=== PATIENT | male | born 1980 | race Caucasian/White ===

== ENCOUNTER 2024-02-10 16:07 | Emergency (ER) | payer OTHER, SELFPAY ==
[2024-02-10 16:10] VITALS: BP 138/82; PULSE 77; RESP 18; TEMP 36.6; O2SAT 97; BMI 29.4
--- NOTE | 2024-02-10 16:10 | HMH.EDGENADL ---
Discharge Plan Disposition Patient Disposition: Home, Self-Care Condition: Good Referrals Follow up/Referrals: Nathan Camacho MD [Staff Physician] - See instructions Provider,MD Marcos [Primary Care Provider] - See instructions Activity Restrictions/Add. Instructions Additional Instructions/Restrictions: Nothing to eat or drink after midnight. Please call Dr. Camacho's office when they open in the morning. Return to ER for any worsening signs or symptoms. Clinical Impressions Clinical Impression: Acute foreign body of right upper arm Qualifiers: Encounter type: initial encounter Qualified Code(s): S40.851A - Superficial foreign body of right upper arm, initial encounter Instructions Patient Instructions: DI for Skin Abscess Discharge ED Provider: Diego Maradiaga General Adult HPI <THERESA Macedo - Last Filed: 02/10/24 19:03> General Chief complaint: Skin/Abscess/Foreign Body Stated complaint: AO02/09@1400 Thorn in RT arm Time Seen by Provider: 02/10/24 16:10 History of Present Illness HPI narrative: Patient presents for evaluation of foreign body in his right upper extremity. Patient was unloading brush that contained trees with forms. He felt puncture in his triceps area of his right upper extremity. He did not actually see the foreign bodily initially however when he started to flex or extend his arm felt very painful. Patient happened to have some lidocaine at home and they attempted to locate remove the foreign body themselves however were unsuccessful. Hence he presented to the emergency department for evaluation. On arrival I feel a hard firm foreign body and can see the puncture wound. I feel the foreign body for porpoising up and down to flex and extends his arm. He is neurovascular intact distally. Related Data Allergies Allergy/AdvReac Type Severity Reaction Status Date / Time No Known Allergies Allergy Verified 02/10/24 16:47 PFSH <THERESA Macedo - Last Filed: 02/10/24 19:03> PFS Disclaimer: The information contained in this section may have been updated after the patient was seen, as this information can be updated by other users. Social History (Updated 02/10/24 @ 19:03 by THERESA Macedo) Smoking Status: Never smoker alcohol intake: never current occupational status: employed Travel in the last 8 weeks: None <THERESA Macedo - Last Filed: 02/10/24 19:03> ROS Obtained: Yes Systems reviewed as appropriate & no additional complaints except as documented Physical Exam <THERESA Macedo - Last Filed: 02/10/24 19:03> General General appearance: alert and in no apparent distress Respiratory Respiratory exam: Present normal lung sounds bilaterally and accessory muscle use Cardiovascular Cardiovascular exam: Present regular rate and normal rhythm Neurological Exam Neurological exam: Present alert and oriented X3 Other Other exam information: At the right upper extremity patient has a puncture wound at the junction of the middle and distal thirds posteriorly. I can feel the foreign body moving up and down as the patient flexes and extends and rotates his arm I can see a dark object moving away and close to the skin. Patient is neurovascular intact distally. Medical Decision Making <THERESA Macedo - Last Filed: 02/10/24 19:03> Nilesh Inquiry Pt receiving controlled substance: No Vital Signs: 02/10/24 16:10 02/10/24 16:17 Temperature 98 F Temperature Source Oral Pulse Rate 76 Pulse Rate [Right] 77 Respiratory Rate 18 18 Blood Pressure 138/82 Blood Pressure [Right Arm] 138/82 Blood Pressure Mean 85 Blood Pressure Mean [Right Arm] 100 02 Sat by Pulse Oximetry 97 97 Oxygen Delivery Method Room Air Orders (Tests/Meds): ED MEDICATIONS Discontinued Medications Generic Name Dose Route Start Last Admin Trade Name Freq PRN Reason Stop Dose Admin Amoxicillin/Clavulanate Potassium 1 each 02/10/24 18:19 02/10/24 18:41 Amoxicillin/Clavulanate Potassium 875/125mg Tablet PO 02/10/24 18:20 1 each ONCE ONE Administration Clindamycin Phosphate 900 mg in 50 mls @ 100 mls/hr 02/10/24 18:20 02/10/24 18:41 Clindamycin 900mg/50ml D5w Premix IV 02/10/24 18:49 100 mls/hr ONCE ONE Administration Iopamidol 75 ml 02/10/24 18:12 02/10/24 18:14 Iopamidol-370 (76%);100ml Bottle IV 02/10/24 18:13 75 ml ONCE ONE Administration Lidocaine HCl 5 ml 02/10/24 16:16 02/10/24 16:48 Lidocaine 1% 10ml Mdv SQ 02/10/24 16:17 5 ml ONCE ONE Administration Tetanus/Reduced Diphtheria/Acell Pertussis 0.5 ml 02/10/24 16:17 02/10/24 17:28 Tet/Diphth/Pert-Adult 0.5ml Syringe IM 02/10/24 16:18 0.5 ml .ONCE ONE Administration ORDERS Category Date Time Status CT humerus RT w con Stat Cat Scan 02/10/24 17:32 Completed Humerus XR right [XR humerus RT] Stat Exams 02/10/24 16:49 Completed Medical Decision Narrative: In summary patient is a 43-year-old male who presents to the emergency department for evaluation of right upper extremity foreign body. Patient is hemodynamically stable upon arrival, afebrile. Physical exam is remarkable for a firm foreign body felt in the posterior aspect of the right upper extremity around the triceps. Differential diagnosis includes foreign body versus fragments versus tendon injury versus muscle injury versus neurovascular injury etc. Initial intervention was for normal sterile prep and date and incision made over the palpable foreign body at the site of the puncture. Unfortunately I was unable to locate the foreign body after extensive searching. At that point we tried a [id number]-[id number] ultrasound to see if we can locate the foreign body and also were unsuccessful. At that point I had an interactive discussion with general surgery about patient management. Dr. Camacho recommended attempting CT scan and marking the point of entry. Unfortunately we were unable to locate the foreign body thus I had another conversation with Dr. Camacho who plans to take patient to the operating room for exploration tomorrow. Patient will be n.p.o. after midnight call Dr. Camacho office in the morning and they will schedule when for him to arrive. Patient was given Augmentin and clindamycin here prior to discharge. <Diego Maradiaga MD - Last Filed: 02/10/24 19:08> Vital Signs: 02/10/24 16:10 02/10/24 16:17 Temperature 98 F Temperature Source Oral Pulse Rate 76 Pulse Rate [Right] 77 Respiratory Rate 18 18 Blood Pressure 138/82 Blood Pressure [Right Arm] 138/82 Blood Pressure Mean 85 Blood Pressure Mean [Right Arm] 100 02 Sat by Pulse Oximetry 97 97 Oxygen Delivery Method Room Air Orders (Tests/Meds): ED MEDICATIONS Discontinued Medications Generic Name Dose Route Start Last Admin Trade Name Freq PRN Reason Stop Dose Admin Amoxicillin/Clavulanate Potassium 1 each 02/10/24 18:19 02/10/24 18:41 Amoxicillin/Clavulanate Potassium 875/125mg Tablet PO 02/10/24 18:20 1 each ONCE ONE Administration Clindamycin Phosphate 900 mg in 50 mls @ 100 mls/hr 02/10/24 18:20 02/10/24 18:41 Clindamycin 900mg/50ml D5w Premix IV 02/10/24 18:49 100 mls/hr ONCE ONE Administration Iopamidol 75 ml 02/10/24 18:12 02/10/24 18:14 Iopamidol-370 (76%);100ml Bottle IV 02/10/24 18:13 75 ml ONCE ONE Administration Lidocaine HCl 5 ml 02/10/24 16:16 02/10/24 16:48 Lidocaine 1% 10ml Mdv SQ 02/10/24 16:17 5 ml ONCE ONE Administration Tetanus/Reduced Diphtheria/Acell Pertussis 0.5 ml 02/10/24 16:17 02/10/24 17:28 Tet/Diphth/Pert-Adult 0.5ml Syringe IM 02/10/24 16:18 0.5 ml .ONCE ONE Administration ORDERS Category Date Time Status CT humerus RT w con Stat Cat Scan 02/10/24 17:32 Completed Humerus XR right [XR humerus RT] Stat Exams 02/10/24 16:49 Completed Medical Decision Narrative: In summary patient is a 43-year-old male who presents to the emergency department for evaluation of right upper extremity foreign body. Patient is hemodynamically stable upon arrival, afebrile. Physical exam is remarkable for a firm foreign body felt in the posterior aspect of the right upper extremity around the triceps. Differential diagnosis includes foreign body versus fragments versus tendon injury versus muscle injury versus neurovascular injury etc. Initial intervention was for normal sterile prep and date and incision made over the palpable foreign body at the site of the puncture. Unfortunately I was unable to locate the foreign body after extensive searching. At that point we tried a [id number]-qyav ultrasound to see if we can locate the foreign body and also were unsuccessful. At that point I had an interactive discussion with general surgery about patient management. Dr. Camacho recommended attempting CT scan and marking the point of entry. Unfortunately we were unable to locate the foreign body thus I had another conversation with Dr. Camacho who plans to take patient to the operating room for exploration tomorrow. Patient will be n.p.o. after midnight call Dr. Camacho office in the morning and they will schedule when for him to arrive. Patient was given Augmentin and clindamycin here prior to discharge. I was consulted by the RUTHIE, and we discussed the complexity of the problems being addressed. I approved the treatment and management plan for this patient?s care in the Emergency Department, thus performing a substantive portion of the medical decision making. Diego Maradiaga MD Procedures <Diego Maradiaga MD - Last Filed: 02/10/24 19:08> Limited Ultrasound Indication:: Limited soft tissue ultrasound Indication: Concern for foreign body in right posterior arm Identified structures: Location: Right tricep/posterior humerus Findings: Skin defect, no evidence of soft tissue foreign body Impression: -Normal limited soft tissue ultrasound Images were saved to permanent archive The study was technically adequate Soft Tissue CPT Codes: CPT Neck: 11094-72 CPT Upper extremity: 36563-72 CPT Axilla: 47924-19 CPT Chest wall: 24210-64 CPT Breast: 53475-87-DO/LT (complete), 66179-03-HI/LT (limited), CPT Upper Back: 76091-26 CPT Lower Back: 12726-56 CPT Abdominal Wall: 66092-55 CPT Pelvic Wall: 67673-54 CPT Lower Extremity: 62265-36 CPT Other Soft Tissue: 14053-00 This study was performed by me, and I personally interpreted all images/videos. Based on my clinical judgement, these images were adequate and did not necessitate further imaging. Critical Care <THERESA Macedo - Last Filed: 02/10/24 19:03> Critical Care Time Critical Care Time: No
[2024-02-10 16:17] VITALS: BP 138/82; PULSE 76; RESP 18; O2SAT 97
[2024-02-10] MEDS: LIDOCAINE 1% 10ML MDV 5 ML SQ (16:48)
--- NOTE | 2024-02-10 16:49 | XR_ITS ---
PROCEDURE INFORMATION: Exam: XR Right Humerus Exam date and time: 02/10/2024 4:56 PM Age: 43 years old Clinical indication: Other: R/O fb; Patient HX: PT had locust thorn penetrate posterior lateral humerus today; Additional info: Foreign body TECHNIQUE: Imaging protocol: Radiologic exam of the right humerus. Views: 2 or more views. COMPARISON: No relevant prior studies available. FINDINGS: Bones/joints: No acute osseous injury. Soft tissues: There is some soft tissue swelling. No radiopaque foreign body is seen. IMPRESSION: No radiopaque foreign body or acute osseous abnormality.
[2024-02-10] MEDS: TET/DIPHTH/PERT-ADULT 0.5ML SYRINGE 0.5 ML IM (17:28)
--- NOTE | 2024-02-10 17:32 | CT_ITS ---
PROCEDURE INFORMATION: Exam: CT Right Upper Extremity With Contrast, Upper Arm Exam date and time: 02/10/2024 6:12 PM Age: 43 years old Clinical indication: Other: Foreign body; Additional info: [place] foreign body posterior upper extremity TECHNIQUE: Imaging protocol: Computed tomography of the right upper extremity with contrast. Exam focused on the upper arm. Radiation optimization: All CT scans at this facility use at least one of these dose optimization techniques: automated exposure control; mA and/or kV adjustment per patient size (includes targeted exams where dose is matched to clinical indication); or iterative reconstruction. Contrast material: ISOVUE; Contrast volume: 75 ml; Contrast route: IV; COMPARISON: CR XR HUMERUS RT 02/10/2024 4:56 PM FINDINGS: Bones/joints: Normal. No acute fracture or dislocation. Soft tissues: There is subcutaneous gas within the tissues of the posterior aspect of the humerus. There is skin discontinuity underlying a radiopaque marker (image 109 series 4). A radiopaque foreign body is not seen. No evidence for vascular injury. No fluid collection. IMPRESSION: Subcutaneous gas and inflammatory change without a radiopaque foreign body identified.
[2024-02-10] MEDS: IOPAMIDOL-370 (76%);100ML BOTTLE 75 ML IV (18:14)
[2024-02-10] MEDS: AMOXICILLIN/CLAVULANATE POTASSIUM 875/125MG TABLET 1 EACH PO (18:41)
[2024-02-10] MEDS: CLINDAMYCIN PHOSPHATE/D5W 900 MG/50 ML PIGGYBACK 100 MG IV (18:41)
[2024-02-10 19:08] VITALS: BP 130/82; PULSE 78; RESP 18; TEMP 37.2; O2SAT 98
== END 2024-02-10 19:17 | disposition home or self-care (01) ==
PROVIDERS: Emergency Provider Emergency Medicine
DX: S40.851A Superficial foreign body of right upper arm, initial encounter (principal); W45.8XXA Other foreign body or object entering through skin, initial encounter; Z23 Encounter for immunization
CPT/HCPCS: 12001; 73060; 73201; 90471; 90715; 96365; 99284; Q9967

== ENCOUNTER 2024-02-11 13:44 | Day surgery (SDC) | payer OTHER, SELFPAY ==
[2024-02-11] VITALS (9 sets, daily range): BP systolic 122–150; BP diastolic 73–91; PULSE 72–98; RESP 16–27; TEMP 36.2–36.8; O2SAT 94–100; BMI 29.4
[2024-02-11] MEDS: LACTATED RINGERS 1000ML 1,000 ML 25 ML IV (13:56)
--- NOTE | 2024-02-11 14:37 | EXP.ANES.CKL ---
[facility] Disclaimer: The information contained in this section may have been updated after the patient was seen, as this information can be updated by other users. Medical History (Updated 02/11/24 @ 13:58 by Roel Valero RN) JOSE CARLOS on CPAP Surgical History (Updated 02/11/24 @ 13:59 by Roel Valero RN) History of surgical removal of ganglion cyst Family History (Updated 02/11/24 @ 13:59 by Roel Valero RN) Other Family history of diabetes mellitus Social History (Updated 02/11/24 @ 14:00 by Roel aVlero RN) Smoking Status: Never smoker alcohol intake: never substance use type: denies use current occupational status: employed Travel in the last 8 weeks: Inside the [place] [facility] Anesthesia Checklist Patient Identification Patient Identification: Arm Band Structural Data Admitted From: Home Planned Operative Procedure/s: Removal of Foreign Body Right Arm Consent for Planned Operative Procedure(s) Verified: Yes Verified Documents: Surgical Consent and History and Physical NPO Status Verified Time NPO: 00:00 Additional verifications Anesthesia Reactions: No Hx Blood Transfusions: No Blood Transfusion Reaction: No Airway Assessment Mallampati Score:: Class II C-Spine Mobility Assessed: Yes TMJ Mobility Assessed: Yes Dentition: Good Dentition Neurological Assessment Level of Consciousness: Awake, Alert and Appropriate Anesthesia Plan Anesthesia Risk discussed: Yes Anesthesia Plan: Verified ASA Class: II Anesthesia Type: General
[2024-02-11] MEDS: CLINDAMYCIN PHOSPHATE/D5W 900 MG/50 ML PIGGYBACK 50 MG (14:40)
[2024-02-11] MEDS: BUPIVACAINE 0.5% W/EPI 1:200,000 30ML VIAL 30 ML IJ (14:43)
--- NOTE | 2024-02-11 15:31 | EXP.OP.NOTE ---
Date of procedure: 02/11/24 Pre-op Diagnosis:: Possible foreign body right upper extremity Post-op Diagnosis:: Same Procedure performed:: Wound exploration with washout and removal of foreign body Surgeon:: Nathan Camacho MD [employer] HISTORY:: Abilio Rivas Anesthesia: LMA Estimated blood loss (mL): 3 Clinical Note:: Patient is a 43-year-old male who was cleaning fence line and unloading brush that contained some thorns on 02/10/2024. He felt that the puncture in his triceps area of the right upper extremity. He did not witness any foreign body puncture. However subsequently when he flexed his right upper extremity he had some pain and discomfort. There was what appeared to be visible foreign body at the time and unsuccessful attempts were made at home to remove this. He therefore presented to the emergency department in the evening of 02/10/2024. There was noted to be a firm hard area consistent with foreign body and puncture wound. Examination in the ER revealed a dark object moving near the skin with flexion and extension of the triceps. Emergency department personnel initially were unable to locate the foreign body after exploration. Bedside ultrasound was performed by ER staff and that revealed no definite foreign body. He underwent plain x-ray of the area which revealed no evidence of any radiopaque definite foreign body. ER personnel had prepped and draped the area and infiltrated lidocaine. Incision was made at the puncture sawyer site and after extensive exploration foreign body was unable to be located. Subsequently had a CT scan performed of the area after discussion was held with general surgery and there was no evidence of any radiopaque foreign body. For this reason discussion was once again held with general surgery and plan was for closure of the wound with the patient to present the following day, today, for possible removal of foreign body under general anesthesia. Patient has subsequently not had any issues or symptoms consistent with retained foreign body. . Operative findings:: There was a tiny firm dark nodule of foreign body removed. No evidence of any large thorn. . Operative note:: Consent was obtained and patient was taken the operating room. He was given preoperative intravenous antibiotic. In the operating room he was placed in supine position. General anesthesia was induced via LMA. Right upper extremity was prepped and draped in the standard surgical fashion allowing exposure of the area. Previous sutures were removed. Wound was opened. Exposure was achieved with retraction using Marie retractors. Thorough exploration was carried out. Deep within the wound there was a dark firm nodular lesion. There was consideration of this may be the tip of a thorn. It was carefully grasped with a hemostat and extracted. It was not the tip of a thorn by the tiny firm nodule measuring about 1 mm. Thorough exploration was carried out in this area for residual retained foreign body. The incision was extended to allow for good exposure and retraction. Thorough exploration was carried out visually with retraction and by palpation. Triceps fascia was inspected and found to be intact without evidence of disruption or penetration. At this time was felt that there was likely no remaining foreign body. Wound was thoroughly irrigated. Hemostasis was achieved with limited use of electrocautery. Local anesthetic was infiltrated. Skin was closed with a combination of 3-0 and 4-0 nylon. Clean dry sterile dressing was applied. Plan will be for observation for possible symptoms of residual foreign body although it appears less likely. May plan for an MRI after several weeks, once inflammation has resolved, to assess for potential foreign body. . Condition: stable Disposition: PACU Complications:: None immediately apparent
--- NOTE | 2024-02-11 15:32 | EXP.ANES.I ---
[facility] Anesthesia Record Part I Anesthesia Record I Intake, IV Amount: 800 Hydration: Adequate Estimated blood loss (mL): 3 Urine output (mL): 0 Blood Pressure: 124/73 SaO2: 94 Pulse Rate: 98 Airway Patency: Patent Respiratory Rate: 27 Temperature: 97.1 F Patient is:: Drowsy Stable to PACU at:: 15:25
--- NOTE | 2024-02-14 13:07 | EXP.ANES.II ---
[facility] Anesthesia Record Part II Anesthesia Record Part II Discharge Time: 15:55 Destination: Surgical Day Care (OP Surgery) PACU nurse assessment reviewed?: Yes Patient Condition:: Good Anesthesia Complications:: None Swallowing reflex intact?: Yes Airway Patency: Patent Cyanosis?: No Blood Pressure: 141/85 SaO2: 100 Respiratory Rate: 18 Pulse Rate: 86 Temperature: 97.1 F Mental Status: Alert & Oriented Pain level:: 0 Nausea and/or vomitting:: None Intake, IV Amount: 0 Hydration: Adequate
[2024-02-14 13:08] VITALS: BP 141/85; PULSE 86; RESP 18; TEMP 36.2; O2SAT 100
== END 2024-02-11 16:26 | disposition home or self-care (01) ==
PROVIDERS: Visit Provider Surgery
PROC: (CPT 24200; principal; 2024-02-11 13:45)
DX: M79.601 Pain in right arm (principal); S40.851A Superficial foreign body of right upper arm, initial encounter
CPT/HCPCS: 24200; J2405; J7120

== ENCOUNTER 2025-02-19 20:56 | Emergency (ER) | payer OTHER, SELFPAY ==
[2025-02-19 21:01] VITALS: BP 133/76; PULSE 87; RESP 18; TEMP 37.1; O2SAT 96; BMI 30.1
--- NOTE | 2025-02-19 21:30 | ED_ITS ---
Discharge Plan Disposition Patient Disposition: Home, Self-Care Prescriptions Prescriptions: New doxycycline hyclate 100 mg capsule 100 mg PO BID 14 Days Qty: 28 0RF doxycycline hyclate 100 mg capsule 100 mg PO BID 28 Days Qty: 56 0RF No Action celecoxib [Celebrex] 100 mg Capsule 100 mg PO DAILY clindamycin HCl 150 mg capsule 150 mg PO TID Qty: 15 0RF Referrals Follow up/Referrals: Provider,Referral, MD [Primary Care Provider, Medical] - See instructions Activity Restrictions/Add. Instructions Additional Instructions/Restrictions: The recommendation for Lyme arthritis is for doxycycline 100 mg twice daily for 28 days. The treatment for erythema migrans which is the rash that you have previously identified on your leg is for 10 days. I believe it would be most appropriate to treat you for 28 days given that you are having joint pain now. Follow-up with your primary care doctor for further guidance. Please return to the ER with any new, concerning, worsening symptoms. Clinical Impressions Clinical Impression: Acute Lyme disease Tick bite Qualifiers: Encounter type: initial encounter Site of tick bite: thigh Laterality: left Q ualified Code(s): S70.362A - Insect bite (nonvenomous), left thigh, initial encounter Instructions Patient Instructions: Lyme Disease, Insect Bites and Stings, Lyme Disease Test Print Language Print Language: Telugu Discharge ED Provider: Gabino Zamora General Adult HPI <Jia Mata (ED), [employer] - Last Filed: 02/19/25 21:56> General Chief complaint: Skin/Abscess/Foreign Body Stated complaint: Fever; 4 Tick Bites one on L Leg and Abdominal Time Seen by Provider: 02/19/25 21:07 Mode of Arrival: Ambulatory Source of Information: Patient Description of Symptoms (Recalled from ER Triage Doc. by RN): Pt states he saw 4 tick bites on inner left thigh, stomach and waist. He never saw the ticks, states he knows what they look like. Pt complains of neck pain, fever and body aches that began on Wednesday. He is concerned for Lyme disease. History of Present Illness HPI narrative: 44-year-old male presents to the ED today telling me that he saw 4 ticks on his body the middle of last week. He did not pull them off himself he says that he just noticed that he was bitten by them. Patient complains of neck pain fever of 101.4, body aches all that began on Wednesday. He says he has not felt well. States that he believes that he has Lyme disease. He wants to be tested for this. He was tested for COVID and tested negative. He does tell me he also had diarrhea but no vomiting Related Data Home Medications ?Medication ?Instructions ?Recorded ?Confirmed celecoxib 100 mg capsule (Celebrex) 100 mg PO DAILY Pa in 02/11/24 02/17/24 Previous Rx's ?Medication ?Instructions ?Recorded clindamycin HCl 150 mg capsule 150 mg PO TID #15 caps 02/11/24 doxycycline hyclate 100 mg capsule 100 mg PO BID 14 da ys #28 caps 02/19/25 doxycycline hyclate 100 mg capsule 100 mg PO BID 28 da ys #56 caps 02/19/25 Allergies Allergy/AdvReac Type Severity Reaction Status Date / Time No Known Allergies Allergy Verified 02/17/24 14:02 [facility] <Jia Mata (ED), [employer] - Last Filed: 02/19/25 21:56> [facility] Disclaimer: The information contained in this section may have been updated after the patient was seen, as this information can be updated by other users. Medical History (Updated 02/19/25 @ 22:27 by Gabino Zamora MD) History of retained foreign body fully removed JOSE CARLOS on CPAP Surgical History History of surgical removal of ganglion cyst Family History Other Family history of diabetes mellitus Social History Smoking Status: Never smoker alcohol intake: never substance use type: denies use current occupational status: employed Travel in the last 8 weeks?: Inside the [place] Have you lived/traveled outside [place] in past 30 days?: No Contact w/someone who lives/traveled outside [place] past 30 days?: No Exposure to someone with infectious disease in past 14 days?: No Do you have a fever (greater than 100.4 F or 38 C)?: No Have you tested positive for COVID-19?: No Exposed to someone with COVID-19 in past 14 days?: No Do you have a sore throat?: No Do you have a cough?: No Do you have any weakness?: No Do you have any diarrhea?: No Are you experiencing any unusual bleeding?: No Do you have any muscle aches/pain?: No Do you have any abdominal pain?: No Are you experiencing loss of taste or smell?: No <Jia Kildoris (ED), [employer] - Last Filed: 02/19/25 21:56> ROS Obtained: Yes Systems reviewed as appropriate & no additional complaints except as documented Constitutional Constitutional: Reports as per HPI Physical Exam <Jia Jacksondoris (ED), [employer] - Last Filed: 02/19/25 21:56> General General appearance: alert and in no apparent distress Head Head exam: normocephalic Eye Eye exam: Present normal appearance, PERRL and EOMI ENT ENT exam: Present normal oropharynx and mucous membranes moist Neck Neck exam: Present full ROM and trachea midline Respiratory Respiratory exam: Present normal lung sounds bilaterally Cardiovascular Cardiovascular exam: Present regular rate, normal rhythm, normal heart sounds, +S1 and +S2 Abdominal Exam Abdominal exam: Present soft and normal bowel sounds Extremities Exam Extremities exam: Present full ROM and normal capillary refill Neurological Exam Neurological exam: Present alert, oriented X3 and normal gait Skin Skin exam: Present warm, dry and intact Medical Decision Making <Jia Jacksondoris (ED), [employer] - Last Filed: 02/19/25 21:56> Medical Records Screening: Per USPSTF and CDC recommendations, given the prevalence of disease in our region, it is our hospital?s policy to screen for HIV and viral Hepatitis for all patients aged 18 and over and those with ongoing risk factors. Nilesh Inquiry Pt receiving controlled substance: No Nilesh was queried for this patient: No Vital Signs: 02/19/25 21:01 Temperature 98.8 F Temperature Source Oral Pulse Rate [Left] 87 Respiratory Rate 18 Blood Pressure [Right Arm] 133/76 Blood Pressure Mean [Right Arm] 95 Blood Pressure Source [Right Arm] Automatic Cuff Blood Pressure Position [Right Arm] Sitting 02 Sat by Pulse Oximetry 96 Oxygen Delivery Method Room Air Lab Data Lab Results 02/19/25 21:46: WBC 7.4, RBC 4.53 L, Hgb 14.2, Hct 41.5 L, MCV 91.6, MCH 31.3 H, MCHC 34.2, RDW 13.4, Plt Count 263, MPV 10.0, Neut % (Auto) 77.4, Lymph % (Auto) 11.7, [place] % (Auto) 9.2, Eos % (Auto) 1.3, Baso % (Auto) 0.1, Neut # (Auto) 5.8, Lymph # (Auto) 0.9, [place] # (Auto) 0.7, Eos # (Auto) 0.1, Baso # (Auto) 0.0, S odium 135 L, Potassium 4.1, Chloride 104, Carbon Dioxide 25, Anion Gap 10.1, BUN 17, Creatinine 0.90, Estimated Creat Clear 144, Estimated GFR 93, Est GFR ( Amer) 112, Glucose 114 H, Calcium 9.3, Total Bilirubin 0.6, AST 30, ALT 28, Alkaline Phosphatase 55, C-Reactive Protein 36.3 H, Total Protein 7.5, Albumin 4.6, Globulin 2.9, Albumin/Globulin Ratio 1.6 02/19/25 21:46 02/19/25 21:46 Orders (Tests/Meds): ED MEDICATIONS Discontinued Medications Generic Name Dose Route Start Last Admin Trade Name Freq PRN Reason Stop Dose Admin Doxycycline Hyclate 100 mg 02/19/25 22:23 Doxycycline Hycl 100 Mg Tablet PO 02/19/25 22:24 ONCE ONE ORDERS Category Date Time Status Babesia microti Abs, IgM, IgG Stat Lab 02/19/25 21:46 Received CBC w/Auto Diff [Complete Blood Count Auto Diff] Stat Lab 02/19/25 21:46 Results CRP [C-Reactive Protein] Stat Lab 02/19/25 21:46 Completed Comprehensive Metabolic Panel Stat Lab 02/19/25 21:46 Completed Ehrilichia Detection PCR Routine Lab 02/19/25 21:46 Received Erythrocyte Sedimentation Rate Stat Lab 02/19/25 21:46 Results Full Resp Panel w/COVID ([facility]) Routine Lab 02/19/25 21:46 Received HIV Combo Stat Lab 02/19/25 21:46 Received Hepatitis C Ab Qual. W/ RFX Stat Lab 02/19/25 21:46 Received Lyme B. burgdorferi PCR Blood Stat Lab 02/19/25 21:46 Received Peripheral Smear Review Stat Lab 02/19/25 21:46 Results Medical Decision Narrative: patient is a 44-year-old male presenting to the emergency department for evaluation of neck pain, nausea, fever and diarrhea along with several tick bites. Patient is hemodynamically stable and nontoxic-appearing upon arrival, afebrile. Differential diagnosis includes Lyme disease, [place] spotted fever, flu, COVID, among others. Workup will be conducted with hematologic labs. Initial inventions include crystalloid bolus, analgesics, antibiotics, etc]. Initial workup reviewed by me [hematologic labs are remarkable for:]. [Imaging informally interpreted by me and remarkable for:] [Formal imaging read remarkable for:] Upon repeat evaluation [patient's pain is improved, appears better perfused, appears the same, appears worse, etc.]. Due to this [additional interventions, patient is appropriate for discharge, patient requires admission, etc.]. <Gabino Zamora MD - Last Filed: 02/19/25 22:48> Vital Signs: 02/19/25 21:01 Temperature 98.8 F Temperature Source Oral Pulse Rate [Left] 87 Respiratory Rate 18 Blood Pressure [Right Arm] 133/76 Blood Pressure Mean [Right Arm] 95 Blood Pressure Source [Right Arm] Automatic Cuff Blood Pressure Position [Right Arm] Sitting 02 Sat by Pulse Oximetry 96 Oxygen Delivery Method Room Air Lab Data Lab Results 02/19/25 21:46: WBC 7.4, RBC 4.53 L, Hgb 14.2, Hct 41.5 L, MCV 91.6, MCH 31.3 H, MCHC 34.2, RDW 13.4, Plt Count 263, MPV 10.0, Neut % (Auto) 77.4, Lymph % (Auto) 11.7, [place] % (Auto) 9.2, Eos % (Auto) 1.3, Baso % (Auto) 0.1, Neut # (Auto) 5.8, Lymph # (Auto) 0.9, [place] # (Auto) 0.7, Eos # (Auto) 0.1, Baso # (Auto) 0.0, S odium 135 L, Potassium 4.1, Chloride 104, Carbon Dioxide 25, Anion Gap 10.1, BUN 17, Creatinine 0.90, Estimated Creat Clear 144, Estimated GFR 93, Est GFR ( Amer) 112, Glucose 114 H, Calcium 9.3, Total Bilirubin 0.6, AST 30, ALT 28, Alkaline Phosphatase 55, C-Reactive Protein 36.3 H, Total Protein 7.5, Albumin 4.6, Globulin 2.9, Albumin/Globulin Ratio 1.6 Orders (Tests/Meds): ED MEDICATIONS Discontinued Medications Generic Name Dose Route Start Last Admin Trade Name Freq PRN Reason Stop Dose Admin Doxycycline Hyclate 100 mg 02/19/25 22:23 Doxycycline Hycl 100 Mg Tablet PO 02/19/25 22:24 ONCE ONE ORDERS Category Date Time Status Babesia microti Abs, IgM, IgG Stat Lab 02/19/25 21:46 Received CBC w/Auto Diff [Complete Blood Count Auto Diff] Stat Lab 02/19/25 21:46 Results CRP [C-Reactive Protein] Stat Lab 02/19/25 21:46 Completed Comprehensive Metabolic Panel Stat Lab 02/19/25 21:46 Completed Ehrilichia Detection PCR Routine Lab 02/19/25 21:46 Received Erythrocyte Sedimentation Rate Stat Lab 02/19/25 21:46 Results Full Resp Panel w/COVID ([facility]) Routine Lab 02/19/25 21:46 Received HIV Combo Stat Lab 02/19/25 21:46 Received Hepatitis C Ab Qual. W/ RFX Stat Lab 02/19/25 21:46 Received Lyme B. burgdorferi PCR Blood Stat Lab 02/19/25 21:46 Received Peripheral Smear Review Stat Lab 02/19/25 21:46 Results Medical Decision Narrative: patient is a 44-year-old male presenting to the emergency department for evaluation of neck pain, nausea, fever and diarrhea along with several tick bites. Patient is hemodynamically stable and nontoxic-appearing upon arrival, afebrile. Differential diagnosis includes Lyme disease, [place] spotted fever, flu, COVID, among others. Workup will be conducted with hematologic labs. RUTHIE attestation I was consulted by the RUTHIE, and we discussed the complexity of problems being addressed. I approved the treatment and management plan for this patient's care in the emergency department, thus performing a substantial portion of the medical decision making. I assumed primary care for the patient at approximately 10 PM. We had discussed the patient at length and I had already evaluated him at bedside. Ordered CBC, CMP, ESR, CRP, and tickborne illness labs. CRP elevated and CBC/CMP nonactionable. Tickborne illness labs will not return tonight. His story was consistent with Lyme disease. He described an erythema migrans that he noticed on his left thigh a couple days after a tick bite. He was then complaining of polyarthralgias and intermittent flulike symptoms including fever. He had no meningismus and was afebrile here. Full range of motion intact of the neck. Was given his initial dose of doxycycline and treated presumptively for Lyme arthritis which would be a 28-day course. Was instructed to follow-up with his PCP after a week for reevaluation and for further guidance on duration of treatment. Gabino Zamora MD Critical Care <Jia Mata (ED), [employer] - Last Filed: 02/19/25 21:56> Critical Care Time Critical Care Time: No
[2025-02-19 21:56] LABS: Adenovirus,PCR Not Detected (NotDetected); Bordetella Pertussis Not Detected (NotDetected); Chlamydophila Pneumoniae, PCR Not Detected (NotDetected); Coronavirus 19, PCR Not Detected (NotDetected); Coronavirus 229E Not Detected (NotDetected); Coronavirus NL63 Not Detected (NotDetected); Coronavirus OC43 Not Detected (NotDetected); Coronovirus HKU1,PCR Not Detected (NotDetected); Human Metapneumovirus Not Detected (NotDetected); Influenza A, PCR Not Detected (NotDetected); Influenza AH1, 2009 Not Detected (NotDetected); Influenza AH1, PCR Not Detected (NotDetected); Influenza AH3,PCR Not Detected (NotDetected); Influenza B, PCR Not Detected (NotDetected); Mycoplasma Pneumoniae, PCR Not Detected (NotDetected); Parainfluenza 1, PCR Not Detected (NotDetected); Parainfluenza 2, PCR Not Detected (NotDetected); Parainfluenza 3, PCR Not Detected (NotDetected); Parainfluenza 4, PCR Not Detected (NotDetected); Respiratory Syncytial Virus Not Detected (NotDetected); Rhinovirus/Enterovirus Not Detected (NotDetected)
[2025-02-19 21:58] LABS: Basophils % 0.1 % (0.1-2.0); Eosinophils # 0.1 Kmm3 (0.0-0.4); Eosinophils % 1.3 % (0.1-12.0); Hematocrit 41.5 % (42.0-52.0); Hemoglobin 14.2 g/dL (14.1-18.0); Immature Granulocytes # 0.02 10^3uL; Immature Granulocytes % 0.3 %; Lymphocytes # 0.9 K/mm3 (0.7-4.5); Lymphocytes % 11.7 % (10-50); Mean Corpuscular HGB Conc 34.2 g/dL (31.8-35.4); Mean Corpuscular Hemoglobin 31.3 pg (27.0-31.2); Mean Corpuscular Volume 91.6 fl (80-94); Monocytes # 0.7 K/mm3 (0.1-1.0); Monocytes % 9.2 % (1.7-9.3); Neutrophils # 5.8 K/mm3 (1.8-7.8); Neutrophils % 77.4 % (37.0-80.0); Nucleated Red Blood Cells # 0 10^3/uL; Nucleated Red Blood Cells % 0 %; Platelet Count 263 K/mm3 (142-424); Red Blood Count 4.53 M/mm3 (4.60-6.20); Red Cell Distribution Width 13.4 % (11.5-17.5); Red Cell Distribution Width-SD 45.1 fL; White Blood Count 7.4 K/mm3 (4.8-10.8)
[2025-02-19 22:18] LABS: Alanine Aminotransferase 28 U/L (12-78); Albumin Level 4.6 g/dl (3.5-5.0); Albumin/Globulin Ratio 1.6 (1.1-1.8); Alkaline Phosphatase 55 U/L (38-126); Anion Gap 10.1 mEq/L (5-15); Aspartate Amino Transferase 30 U/L (17-59); Bilirubin,Total 0.6 mg/dl (0.2-1.3); Blood Urea Nitrogen 17 mg/dl (9-20); Calcium 9.3 mg/dl (8.4-10.2); Carbon Dioxide 25 mmol/L (22.0-30.0); Chloride 104 mmol/L (98-107); Creatinine Clearance Estimated 144 mL/min (50-200); Estimated Glomerular Filt Rate 93 ml/min (>60); GFR (African American) 112 ML/MIN (>60); Globulin 2.9 g/dL (1.3-3.2); Glucose 114 mg/dl (74-100); Potassium 4.1 mmoL/L (3.5-5.1); Sodium 135 mmol/L (136-145); Total Protein,Serum 7.5 g/dl (6.3-8.2)
[2025-02-19 22:24] LABS: C-Reactive Protein 36.3 mg/L (0-4)
[2025-02-19 22:50] LABS: Erythrocyte Sedimentation Rate 12 mm/hr (0-15)
[2025-02-19] MEDS: DOXYCYCLINE HYCL 100 MG TABLET PO (22:52)
[2025-02-19 23:06] VITALS: BP 109/45; PULSE 76; RESP 20; TEMP 36.7; O2SAT 96
[2025-02-19 23:21] LABS: HIV Combo NEGATIVE (Negative)
[2025-02-19 23:29] LABS: Hepatitis C Ab Qual. W/ RFX NEGATIVE (Negative)
[2025-02-21 21:52] LABS: Peripheral Smear Review Scanned Result
[2025-02-22 17:17] LABS: A. phagocytophilum,PCR Negative (Negative); Ehrlichia sp., PCR Negative (Negative)
[2025-02-23 14:20] LABS: Babesia microti IgG <1:10 (Neg:<1:10); Babesia microti IgM <1:10 (Neg:<1:10)
[2025-02-24 09:50] LABS: Lyme B. burgdorferi PCR Blood Negative (Negative)
== END 2025-02-19 23:15 | disposition home or self-care (01) ==
PROVIDERS: Nurse Practitioner; Emergency Provider Student in an Organized Health Care Education/Training Program
DX: A69.20 Lyme disease, unspecified (principal); S70.362A Insect bite (nonvenomous), left thigh, initial encounter; M54.2 Cervicalgia; R50.9 Fever, unspecified; W57.XXXA Bitten or stung by nonvenomous insect and other nonvenomous arthropods, initial encounter; Z11.59 Encounter for screening for other viral diseases; Z11.4 Encounter for screening for human immunodeficiency virus [HIV]
CPT/HCPCS: 0223U; 80053; 80074; 85025; 85651; 86140; 86753; 87389; 87468; 87476; 87484; 87633; 99283